=== PATIENT | female | born 1985 | race African-American/Black ===

== ENCOUNTER 2019-04-04 11:18 | Emergency (ER) | payer OTHER ==
[~2019-04-04] VITALS: Ht 165.1 cm; Wt 76.2 kg
[2019-04-04 11:27] VITALS: BP 146/91
[2019-04-04] MEDS ORDERED: MOBIC15 MG PO (12:02)
== END 2019-04-04 12:09 | disposition home or self-care (01) ==
LOC: ER 11:18
DX: K13.0 Diseases of lips (principal); T49.8X5A Adverse effect of other topical agents, initial encounter; F17.210 Nicotine dependence, cigarettes, uncomplicated; Y92.89 Other specified places as the place of occurrence of the external cause